=== PATIENT | male | born 1950 | race American Indian/Alaskan Native ===

== ENCOUNTER 2017-11-19 13:09 | Outpatient (CLI) | payer MEDICARE ==
--- NOTE | 2017-11-19 14:34 | XRay Report ---
Left hip 3 views. History: Hip pain. Findings: A left hip prosthesis is in satisfactory position with no radiographic signs of complications he there is no radiographic lucency adjacent to the stem of the prosthesis. A right hip prosthesis is also noted and is unremarkable. The remainder of the bony pelvis is normal. Impression: Normal postoperative appearance as described with no acute findings.
== END 2017-11-19 13:10 | disposition home or self-care (01) ==
LOC: SPVIMAG 13:09
PROVIDERS: ATTEND Orthopaedic Surgery Sports Medicine
DX: Z47.1 Aftercare following joint replacement surgery (principal); Z96.642 Presence of left artificial hip joint